=== PATIENT | male | born 2000 | race American Indian/Alaskan Native ===

== ENCOUNTER 2020-03-21 12:13 | Emergency (ER) | payer BC ==
[2020-03-21] MEDS ORDERED: ACETAMINOPHEN 500 MG TAB PO ONE (13:59)
[2020-03-21] MEDS ORDERED: LIDOCAINE (1%) 10 MG/1 ML VIAL 20 ML MDV INFILTRATI ONE (13:59)
[2020-03-21] MEDS ORDERED: DIPHtheria,PERTUSSIS(ACELL),TETANUS VACCINE/PF 0.5 ML VIAL IM ONE (13:59)
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
[2020-03-21] MEDS ORDERED: MORPHINE 2 MG/1 ML INJ IM ONE (14:54)
[2020-03-21] MEDS ORDERED: ONDANSETRON 4 MG ODT TAB PO ONE (14:55)
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
--- NOTE | 2020-03-21 14:59 | XRay Report ---
LEFT SHOULDER 3 VIEWS INDICATION / CLINICAL INFORMATION: Left shoulder pain. COMPARISON: None available. FINDINGS: BONES/JOINT(S): No acute fracture or subluxation. No significant degenerative changes. SOFT TISSUES: No significant abnormality. ADDITIONAL FINDINGS: None. Signer Name: Kehinde Yates MD Signed: 03/21/2020 2:54 PM Workstation Name: [id number]
--- NOTE | 2020-03-21 14:59 | XRay Report ---
RIGHT ELBOW 3 VIEWS INDICATION / CLINICAL INFORMATION: Right elbow pain. COMPARISON: None available. FINDINGS: BONES/JOINT(S): No acute fracture or subluxation. No significant degenerative changes. SOFT TISSUES: No significant abnormality. ADDITIONAL FINDINGS: None. Signer Name: Kehinde Yates MD Signed: 03/21/2020 2:55 PM Workstation Name: [id number]
--- NOTE | 2020-03-21 15:00 | XRay Report ---
BILATERAL KNEES, 3 VIEWS EACH INDICATION / CLINICAL INFORMATION: Bilateral knee pain. COMPARISON: None available. FINDINGS: BONES/JOINT(S): No acute fracture or subluxation. There is air in the left knee joint which may be re lated to laceration. There is no significant joint fluid. SOFT TISSUES: No significant abnormality. ADDITIONAL FINDINGS: None. Signer Name: Kehinde Yates MD Signed: 03/21/2020 2:56 PM Workstation Name: [id number]
[2020-03-21] MEDS ORDERED: ceFAZolin/NS 1 GM/50 ML 1 GM/50 ML BAG IV ONE (16:00)
[2020-03-21] MEDS ORDERED: BACITRACIN/POLYMYXIN B OINT 28.35 GM TP ONE (16:03)
[2020-03-21 16:06] LABS: Basophils # (Auto) 0.1 K/mm3 (0.0-0.1); Basophils % (Auto) 0.5 % (0.0-1.8); Hematocrit 47.6 % (35.5-45.6); Hemoglobin 15.9 gm/dl (11.8-15.2); Lymphocytes # (Auto) 0.9 K/mm3 (1.2-5.4); Lymphocytes % (Auto) 8.4 % (13.4-35.0); Mean Corpuscular HGB Conc 34 % (32-34); Mean Corpuscular Volume 94 fl (84-94); Monocytes # (Auto) 0.7 K/mm3 (0.0-0.8); Monocytes % (Auto) 6.4 % (0.0-7.3); Platelet Count 184 K/mm3 (140-440); Red Blood Count 5.04 M/mm3 (3.65-5.03); Red Cell Distribution Width 13.1 % (13.2-15.2)
[2020-03-21] MEDS ORDERED: SODIUM CHLORIDE IRRI 500 ML 500 ML IR ONE (16:11)
[2020-03-21 16:14] LABS: Alanine Aminotransferase 26 units/L (7-56); Albumin 4.3 g/dL (3.9-5); BUN/Creatinine Ratio 10; Blood Urea Nitrogen 11 mg/dL (9-20); Calcium 9.7 mg/dL (8.4-10.2); Hemolysis Index 36
[2020-03-21 16:15] LABS: INR 1.02 (0.87-1.13)
[2020-03-21 16:21] LABS: Partial Thromboplastin Time 25.4 Sec. (24.2-36.6)
[2020-03-21 18:43] VITALS: BP 122/74
== END 2020-03-21 18:30 | disposition short-term general hospital (02) ==
LOC: ED 12:13
DX: S09.90XA Unspecified injury of head, initial encounter (principal); S81.002A Unspecified open wound, left knee, initial encounter; S41.111A Laceration without foreign body of right upper arm, initial encounter; V59.40XA Driver of pick-up truck or van injured in collision with unspecified motor vehicles in traffic accident, initial encounter; Y93.89 Activity, other specified; Y92.410 Unspecified street and highway as the place of occurrence of the external cause; Y99.0 Civilian activity done for income or pay
CPT/HCPCS: 12002; 36415; 70450; 73030; 73080; 73562; 80053; 82550; 83735; 85025; 85610; 85730; 90471; 90715; 96365; 96372; 99285; J0690; J2270; Q0162